=== PATIENT | female | born 1965 | race Caucasian/White ===

== ENCOUNTER 2021-05-12 14:46 | Emergency (ER) | payer MEDICAID ==
[~2021-05-12] VITALS: Ht 157.5 cm; Wt 63.0 kg
[2021-05-12 14:58] VITALS: BP 147/84
[2021-05-12] MEDS ORDERED: DOXYCYCLINE HYCLATE 100MG CAPSULE PO ONE (15:45)
[2021-05-12] MEDS ORDERED: CEFTRIAXONE SODIUM 500 MG/VIAL IM ONE (15:45)
[2021-05-12] MEDS ORDERED: LIDOCAINE HCL/PF 1% 10 MG/ML 5ML VIAL INFIL ONE (16:30)
[2021-05-12] MEDS ORDERED: LIDOCAINE HCL 1% 20ML VIAL (Pyxis) INJ INFIL NR (16:45)
[2021-05-12] MEDS ORDERED: DIF15 MT (17:42)
[2021-05-12] MEDS ORDERED: DOXY100T28 MT (17:42)
[2021-05-12] MEDS ORDERED: METR500T MT (17:42)
[2021-05-16 04:07] LABS: NEISSERIA GONORRHOEAE NAA Positive (Negative)
== END 2021-05-12 17:59 | disposition home or self-care (01) ==
LOC: ER 14:46
DX: N76.0 Acute vaginitis (principal); I10 Essential (primary) hypertension
CPT/HCPCS: 87210; 87491; 87591; 96372; 99283; J0696; J3490

== ENCOUNTER 2021-05-16 19:41 | Emergency (ER) | payer MEDICAID ==
[~2021-05-16] VITALS: Ht 170.2 cm; Wt 64.0 kg
[~2021-05-16 19:41] MED LIST: DIF15 MT; DOXY100T28 MT; METR500T MT
[2021-05-16] MEDS ORDERED: ONDANSETRON HCL 4MG/2ML INJ IV STA (20:46)
[2021-05-16] MEDS ORDERED: SODIUM CHLORIDE 0.9% 1,000 ML IV ONE (21:00)
[2021-05-16 22:24] LABS: BASOPHILS % 0.4 % (0.0-2.0); EOSINOPHILS % 0.3 % (0.0-5.0); HEMATOCRIT. 41.6 % (36.0-48.0); LYMPHOCYTES % 15.5 % (20.0-50.0); MEAN CORPUSCULAR HEMOGLOBIN 29.7 pg (28.0-32.0); MEAN CORPUSCULAR VOLUME 88.4 fL (81.0-99.0); MEAN PLATELET VOLUME 6.8 fl (7.4-10.4); MONOCYTES % 6.6 % (2.0-8.0); NEUTROPHILS % 77.2 % (40.0-76.0); PLATELET 416 x1000/uL (130-400); RED BLOOD CELL COUNT 4.71 mill/uL (4.2-5.4); RED CELL DISTRIBUTION WIDTH 12.8 % (11.6-14.6)
[2021-05-16 22:31] LABS: CHLORIDE 102 mEq/L (98-107)
[2021-05-16 23:07] VITALS: BP 126/70
== END 2021-05-16 23:11 | disposition home or self-care (01) ==
LOC: ER 19:41
DX: B34.9 Viral infection, unspecified (principal); I49.9 Cardiac arrhythmia, unspecified; Z20.822 Contact with and (suspected) exposure to COVID-19; Z98.890 Other specified postprocedural states
CPT/HCPCS: 36415; 71045; 80053; 84484; 85025; 87426; 93005; 96361; 96374; 99285; J2405; J7030